=== PATIENT | female | born 1995 | race African-American/Black ===

== ENCOUNTER 2017-08-05 21:11 | Emergency (ER) | payer MEDICAID ==
[~2017-08-05] VITALS: Ht 162.6 cm; Wt 87.0 kg
[2017-08-06 00:15] VITALS: BP 148/77
[2017-08-06] MEDS ORDERED: IBUPROFEN 600MG TABLET PO SCH (02:53)
== END 2017-08-06 05:38 | disposition home or self-care (01) ==
LOC: ER 23:44
DX: S00.03XA Contusion of scalp, initial encounter (principal); F12.10 Cannabis abuse, uncomplicated; V43.62XA Car passenger injured in collision with other type car in traffic accident, initial encounter; Y93.89 Activity, other specified; Y92.488 Other paved roadways as the place of occurrence of the external cause
CPT/HCPCS: 70450; 72125; 81025; 99284